=== PATIENT | male | born 1995 | race Caucasian/White ===

== ENCOUNTER 2016-10-18 11:13 | Emergency (ER) | payer BC ==
[2016-10-18 11:24] VITALS: TEMP 98.1
--- NOTE | 2016-10-18 12:00 | EDPHY ---
H & P Stated Complaint: brown of car slammed on head yesterday/denies loc but has crump/ dizzyness today HPI/ROS: CHIEF COMPLAINT: Headache, head injury HISTORY OF PRESENT ILLNESS: Patient complains of accidentally striking himself in the head with a car brown yesterday. This happened twice. He was working on his own car was not currently working. Since then he has had a mild headache. It actually went away and then woke up even more severe this morning. It is over the occiput, the area of injury. Some lightheadedness and dizziness. He has felt somewhat foggy or cloudiness thought process. No neck pain or stiffness. No injuries elsewhere. No vomiting. No change in vision. No other associated complaints or modifying factors REVIEW OF SYSTEMS: Ten systems reviewed and are negative unless otherwise noted in the HPI PAST MEDICAL HISTORY: Asthma SOCIAL HISTORY: Nonsmoker FAMILY HISTORY: Noncontributory EXAMINATION General Appearance: Alert, no distress Head: normocephalic, atraumatic. No Wesley sign. No raccoon eyes. Eyes: Pupils equal and round, no conjunctival pallor or injection ENT, Mouth: Mucous membranes moist Neck: Normal inspection, supple, non-tender Respiratory: No retractions or distress Cardiovascular: Regular rate. Pulses intact distally symmetrically Gastrointestinal: Abdomen is soft and nontender Neurological: GCS 15. A&O, cranial nerves 2-12 grossly intact. nonfocal, normal gait. Strength symmetric in all 4 limbs. No pronator drift. No dysmetria Skin: Warm and dry, no rash Extremities: Nontender, no pedal edema Psychiatric: Mood and affect normal DIFFERENTIAL DIAGNOSES: Including but not limited to hematoma, concussion, closed-head injury, intracranial hemorrhage, basilar skull fracture MDM: 11:50 a.m. Closed head injury x2 yesterday. This is from a brown of a car. He has had some headache, dizziness and felt somewhat lightheaded and cloudy in his thought process. He has no focal findings. We discussed the risks, benefits and alternatives of CT scan versus no CT scan based on his [place] CT Head score. The patient would like to proceed with a CT scan of the head. This has been ordered. He is in no acute distress. 12:25 p.m Notified by radiologist Dr. Canada. CT scan of the head is unremarkable for any acute findings. He remains awake and alert, no acute distress. Neuro exam is fully normal. Discharged home with symptomatic instructions. We discussed the nature of head injuries in the possibility of lingering symptoms. I would like him to see our concussion specialist for further care. Return to ER precautions discussed. He is comfortable this plan and discharged home stable condition SUPERVISION: This patient was independently evaluated without direct examination by the attending physician. Case was discussed with attending physician. Source: Patient Exam Limitations: No limitations - Personal History Current Tetanus/Diphtheria Vaccine: Yes - Medical/Surgical History Hx Asthma: Yes Hx Chronic Respiratory Disease: No Hx Diabetes: No Hx Cardiac Disease: No Hx Renal Disease: No Hx Cirrhosis: No Hx Alcoholism: No Hx HIV/AIDS: No Hx Splenectomy or Spleen Trauma: No Other PMH: denies - Social History Smoking Status: Never smoked Constitutional: Initial Vital Signs Temperature (C) 98.1 F 10/18/16 11:21 Heart Rate 59 L 10/18/16 11:21 Respiratory Rate 20 10/18/16 11:21 Blood Pressure 125/80 H 10/18/16 11:21 O2 Sat (%) 96 10/18/16 11:21 O2 Delivery Mode Room Air Allergies/Adverse Reactions: No Known Allergies Allergy (Unverified 10/18/16 11:21) Home Medications: Medication Instructions Recorded Albuterol 5 mg/ml INH 10/18/16 Codeine/Butalbit/Acetamin/Caff 1 each PO Q6 PRN #12 capsule 10/18/16 [Fioricet-Cod 83-06-106-40 Cap] Departure - Departure Disposition: Home, Routine, Self-Care Clinical Impression: Closed head injury Qualifiers: Encounter type: initial encounter Qualified Code(s): S09.90XA - Unspecified injury of head, initial encounter Condition: Good Instructions: Concussion (ED), Head Injury (ED) Additional Instructions: 1. Follow up with the concussion specialist Dr. Nicholson 2. Return here for worsening headache, neck pain or stiffness, fever, chills, vomiting, visual changes Referrals: Gauri Nicholson MD [Medical Doctor] - As per Instructions Stand Alone Forms: Work Excuse Prescriptions: Codeine/Butalbit/Acetamin/Caff [Fioricet-Cod 30-07-681-40 Cap] 1 each PO Q6 PRN #12 capsule PRN Reason: Headache
[2016-10-18 12:52] VITALS: BP 110/70; PULSE 58; RESP 16; O2SAT 97
== END 2016-10-18 12:52 | disposition home or self-care (01) ==
DX: S09.90XA Unspecified injury of head, initial encounter (principal); J45.909 Unspecified asthma, uncomplicated; W22.8XXA Striking against or struck by other objects, initial encounter; Y99.8 Other external cause status; Y93.89 Activity, other specified

== ENCOUNTER 2016-12-06 12:10 | Emergency (ER) | payer BC ==
--- NOTE | 2016-12-06 15:05 | EDPHY ---
H & P Stated Complaint: R heel hurts since Saturday night;landed hard on heel while skateboarding HPI/ROS: Chief complaint: Right heel pain History of present illness: This is a 21-year-old male who presents to the emergency department for right heel pain. Patient reports 3 days ago while skateboarding he stepped down hard on his heel. Since then he has had pain. It makes it difficult to ambulate. He is concerned he is fractured. He denies other associated signs or symptoms including no open wounds, no abnormal coolness or paresthesias in the foot. No low back pain. No report of trauma to other parts of the body. - Personal History Current Tetanus Diphtheria and Acellular Pertussis (TDAP): Yes - Medical/Surgical History Hx Asthma: Yes Hx Chronic Respiratory Disease: No Hx Diabetes: No Hx Cardiac Disease: No Hx Renal Disease: No Hx Cirrhosis: No Hx Alcoholism: No Hx HIV/AIDS: No Hx Splenectomy or Spleen Trauma: No Other PMH: denies - Social History Smoking Status: Never smoked - Physical Exam Exam: General appearance: Alert, nontoxic Musculoskeletal: No deformity to the right lower extremity. There is tenderness to palpation over the heel of the foot. The rest of the foot ankle and lower leg are nontender. He is moving the digits of the foot and the ankle well. His spine is nontender to palpation. Vascular exam: Normal pulses and capillary refill in the foot Neurologic exam: The patient has normal sensation and motor function distal to the injury. Constitutional: Initial Vital Signs Temperature (C) 37.1 C 12/06/16 12:15 Heart Rate 69 12/06/16 12:15 Respiratory Rate 16 12/06/16 12:15 Blood Pressure 132/64 H 12/06/16 12:15 O2 Sat (%) 97 12/06/16 12:15 O2 Delivery Mode Room Air Allergies/Adverse Reactions: No Known Allergies Allergy (Verified 12/06/16 12:17) Home Medications: Medication Instructions Recorded NK [No Known Home Meds] 12/06/16 Medical Decision Making - Diagnostics Imaging Results: Imaging Impressions Calcaneus X-Ray 12/06/16 13:23 Impression: 1. No evidence of right calcaneus fracture. 2. Plantar and dorsal calcaneal spurs. Imaging: I viewed and interpreted images myself ED Course/Re-evaluation: Patient seen under the supervision of my secondary supervising physician Dr. Luis Enrique Boyle. Patient presents to the emergency department for right heel pain. The right lower extremity is neurovascularly intact. X-rays are negative. Likely contusion. By history and physical exam no evidence of trauma to other parts of the body. Patient is discharged home. Home care is discussed. He is referred to Orthopedics for recheck. Return precautions are given. Patient voiced understanding and agreement with plan. Differential Diagnosis: Included but not limited to contusion, fracture, sprain or strain Departure - Departure Disposition: Home, Routine, Self-Care Clinical Impression: Foot contusion Qualifiers: Encounter type: initial encounter Laterality: right Qualified Code(s): S90.31XA - Contusion of right foot, initial encounter Condition: Good Instructions: Foot Contusion (ED) Additional Instructions: Follow-up with primary care doctor for recheck If symptoms worsen or new symptoms develop return to the emergency room for recheck Referrals: NONE *PRIMARY CARE P,. [Primary Care Provider] - As per Instructions [facility],. [Clinic] - As per Instructions
[2016-12-06 15:11] VITALS: BP 132/78; PULSE 81; RESP 15; TEMP 98.1; O2SAT 96
== END 2016-12-06 15:10 | disposition home or self-care (01) ==
DX: S90.31XA Contusion of right foot, initial encounter (principal); J45.909 Unspecified asthma, uncomplicated; V00.138A Other skateboard accident, initial encounter; Y99.8 Other external cause status; Y93.51 Activity, roller skating (inline) and skateboarding

== ENCOUNTER 2017-05-05 19:24 | Emergency (ER) | payer BC ==
[2017-05-05 19:36] VITALS: TEMP 98.2
--- NOTE | 2017-05-05 19:58 | EDPHY ---
H & P Stated Complaint: poss flu, body aches, nausea, Time Seen by Provider: 05/05/17 19:57 - Personal History Current Tetanus Diphtheria and Acellular Pertussis (TDAP): Yes - Medical/Surgical History Hx Asthma: Yes Hx Chronic Respiratory Disease: No Hx Diabetes: No Hx Cardiac Disease: No Hx Renal Disease: No Hx Cirrhosis: No Hx Alcoholism: No Hx HIV/AIDS: No Hx Splenectomy or Spleen Trauma: No Other PMH: denies - Social History Smoking Status: Never smoked Constitutional: Initial Vital Signs Temperature (C) 36.8 C 05/05/17 19:34 Heart Rate 70 05/05/17 19:34 Respiratory Rate 20 05/05/17 19:34 Blood Pressure 123/81 H 05/05/17 19:34 O2 Sat (%) 96 05/05/17 19:34 O2 Delivery Mode Room Air Allergies/Adverse Reactions: No Known Allergies Allergy (Verified 12/06/16 12:17) Home Medications: Medication Instructions Recorded Oseltamivir Phosphate [Tamiflu 75 75 mg PO BID #10 cap 05/05/17 mg (*)] Medical Decision Making ED Course/Re-evaluation: CHIEF COMPLAINT: Body aches, cough, vomiting, headache HISTORY OF PRESENT ILLNESS: The patient is a 21 y/o male complaining of a cough, body ache, vomiting, diarrhea, headache, onset yesterday. His symptoms worsened today at work. He has not taking medication to alleviate his symptoms. No chest pain, shortness of breath, abdominal pain. REVIEW OF SYSTEMS: A 10 point review of systems was performed and is negative with the exception of the elements mentioned in the history of present illness. PHYSICAL EXAM: HR, BP, O2 Sat, RR. Temp noted General Appearance: Alert, well hydrated, appropriate, and non-toxic appearing. Head: Atraumatic without scalp tenderness or obvious injury Eyes: Pupils equal, round, reactive to light and accommodation, EOMI, no trauma , no injection. Ears: Clear bilaterally, no perforation, normal landmarks Nose: Atraumatic, no rhinorrhea, clear. Throat: Mucus membranes moist. Neck: Supple, nontender, no lymphadenopathy. Respiratory: No retractions, no distress, no wheezes, and no accessory muscle use. Lungs are clear to auscultation bilaterally. Cardiovascular: Regular rate and rhythm, no murmurs, rubs, or gallops. Good capillary refill all extremities. Gastrointestinal: Abdomen is soft, nontender, non-distended, no masses, no rebound, no guarding, no peritoneal signs. Musculoskeletal: Normal active ROM of all extremities, atraumatic. Neurological: Alert, appropriate, and interactive. Non-focal neuro. Skin: No rashes, good turgor, no nodules on palpation. Past medical history: Denies Past surgical history: Denies Family history: Noncontributory Social history: Friend at bedside, employed DIFFERENTIAL DIAGNOSIS: The differential diagnosis for the patient's fever included but was not limited to pneumonia, urinary tract infection, viral syndrome, meningitis, and sepsis. MEDICAL DECISION MAKING: The patient is a 21 y/o male presenting with body aches, cough, and nausea. His symptoms are consistent with influenza. He would like to be prescribed Tamiflu. His first dose of Tamiflu will be given in the ED. Reassessed patient and discussed Tamiflu prescription. Return precautions provided; patient is comfortable with this plan. Departure - Departure Disposition: Home, Routine, Self-Care Clinical Impression: Influenza, Viral syndrome Condition: Good Instructions: Influenza (ED), Viral Syndrome (ED) Additional Instructions: 1. Take Tamiflu as prescribed. 2. Use ibuprofen and Tylenol as needed for fever and body aches. 3. Follow up with your primary care physician within 72 hours for reevaluation. 4. Drink plenty of fluids. 5. Return to the emergency department immediately for high fever, severe headache or neck pain, difficulty breathing, abdominal pain, rash or other worsening of condition. Referrals: [facility],. [Clinic] - As per Instructions Prescriptions: Oseltamivir Phosphate [Tamiflu 75 mg (*)] 75 mg PO BID #10 cap Report Scribed for: Anjum Soria Report Scribed by: Jody Martini Date of Report: 05/05/17 Time of Report: 19:59
[2017-05-05] MEDS ORDERED: OSELTAMIVIR PHOSPHATE 75 MG CAP PO ONE (20:02)
[2017-05-05 20:38] VITALS: BP 133/88; PULSE 88; RESP 18; O2SAT 94
== END 2017-05-05 20:31 | disposition home or self-care (01) ==
DX: J11.1 Influenza due to unidentified influenza virus with other respiratory manifestations (principal); B34.9 Viral infection, unspecified

== ENCOUNTER 2017-08-01 13:57 | Emergency (ER) | payer BC ==
[2017-08-01 14:55] LABS: PLATELET COUNT 251 10^3/uL (150-400)
--- NOTE | 2017-08-01 15:21 | EDPHY ---
H & P Time Seen by Provider: 08/01/17 14:11 HPI/ROS: CHIEF COMPLAINT: Abdominal pain HISTORY OF PRESENT ILLNESS: 21-year-old male presents to the emergency department with generalized abdominal pain over last 3-4 days. He does have a history of irritable bowel syndrome and states that the abdominal pain is similar to what he is experiencing now. He did try taking his medication for IBS. He states he came to the emergency department because yesterday he started having a "warm sensation" in his right flank. He denies any known trauma or injury. He he denies pleuritic chest pain. He does not feel short of breath. No urinary symptoms. No hematuria. No diarrhea. REVIEW OF SYSTEMS: Constitutional: No fever, no chills. Eyes: No double or blurry vision. ENT: No sore throat. Respiratory: No cough, no shortness of breath. Cardiac: No chest pain. Gastrointestinal: Abdominal pain as above. No vomiting or diarrhea. Genitourinary: No dysuria. Musculoskeletal: No neck or back pain. Skin: No rashes. Neurological: No headache. Past Medical/Surgical History: Irritable bowel syndrome Social History: Final lives in [place] Smoking Status: Never smoked Physical Exam: General Appearance: Alert, no distress. Afebrile. No apparent distress. Eyes: Pupils equal and round. Extraocular motions are all intact. ENT: Mouth: Mucous membranes moist. Respiratory: No wheezing, rhonchi, or rales, lungs are clear to auscultation. Cardiovascular: Regular rate and rhythm. Gastrointestinal: Abdomen is soft. Nontender to palpate in the epigastric area or the right upper or the left upper quadrant. There is no rebound, guarding or masses noted. No pain with palpation at McBurney's point. No CVA tenderness bilaterally. No vesicular rash noted to the right flank. Neurological: Alert and oriented x 3, cranial nerves II through XII grossly intact Skin: Warm and dry, no rashes. Musculoskeletal: Nontender to palpate along the cervical, thoracic or lumbar spine. Neck is supple. Extremities: Full range of motion and no peripheral edema. Psychiatric: Patient is oriented X 3, there is no agitation. Constitutional: Initial Vital Signs Temperature (C) 36.9 C 08/01/17 14:05 Heart Rate 70 08/01/17 14:05 Respiratory Rate 18 08/01/17 14:05 Blood Pressure 115/74 08/01/17 14:05 O2 Sat (%) 95 08/01/17 14:05 O2 Delivery Mode Room Air Allergies/Adverse Reactions: No Known Allergies Allergy (Verified 08/01/17 14:05) Home Medications: Medication Instructions Recorded Albuterol 08/01/17 Librax (*) 08/01/17 Medical Decision Making ED Course/Re-evaluation: 21-year-old male presents to the emergency department with generalized abdominal pain over last few days as well as some the right flank discomfort. Laboratory studies reveal normal renal function. White blood cell count is not elevated. Urinalysis reveals no signs of infection. The case was discussed with Dr. Anjum Soria, secondary supervising physician, who did not directly evaluate the patient but agrees with treatment and plan. He agrees with discharging the patient home with follow-up with primary care provider. Patient was comfortable being discharged home. The patient states that he was concerned about possible renal disease. He was reassured that his laboratory studies looked normal. His urinalysis revealed no signs of infection. I doubt kidney stone or kidney infection. I did explain to the patient that the "warm sensation" that he is experiencing in his right flank could possibly be related to herpetic neuralgia associated with herpes zoster. He was given primary care referral return if he develops redness or blistering rash or any other concerns. Differential Diagnosis: Including but not limited to irritable bowel syndrome, herpes zoster, gastritis , kidney stone, urinary tract infection, pyelonephritis - Data Points Laboratory Results: Laboratory Results 08/01/17 14:30 08/01/17 14:30 08/01/17 08/01/17 08/01/17 14:30 14:30 14:15 WBC 8.87 10^3/uL 10^3/uL (3.80-9.50) RBC 5.75 10^6/uL 10^6/uL (4.40-6.38) Hgb 16.7 g/dL g/dL (13.7-17.5) Hct 48.4 % % (40.0-51.0) MCV 84.2 fL fL (81.5-99.8) MCH 29.0 pg pg (27.9-34.1) MCHC 34.5 g/dL g/dL (32.4-36.7) RDW 12.0 % % (11.5-15.2) Plt Count 251 10^3/uL 10^3/uL (150-400) MPV 10.7 fL fL (8.7-11.7) Neut % (Auto) 51.0 % % (39.3-74.2) Lymph % (Auto) 38.3 % % (15.0-45.0) Dixon % (Auto) 7.0 % % (4.5-13.0) Eos % (Auto) 2.7 % % (0.6-7.6) Baso % (Auto) 0.5 % % (0.3-1.7) Nucleat RBC Rel Count 0.0 % % (0.0-0.2) Absolute Neuts (auto) 4.53 10^3/uL 10^3/uL (1.70-6.50) Absolute Lymphs (auto) 3.40 10^3/uL H 10^3/uL (1.00-3.00) Absolute Monos (auto) 0.62 10^3/uL 10^3/uL (0.30-0.80) Absolute Eos (auto) 0.24 10^3/uL 10^3/uL (0.03-0.40) Absolute Basos (auto) 0.04 10^3/uL 10^3/uL (0.02-0.10) Absolute Nucleated RBC 0.00 10^3/uL 10^3/uL (0-0.01) Immature Gran % 0.5 % % (0.0-1.1) Immature Gran # 0.04 10^3/uL 10^3/uL (0.00-0.10) Sodium 146 mEq/L H mEq/L (135-145) Potassium 4.1 mEq/L mEq/L (3.3-5.0) Chloride 107 mEq/L mEq/L (97-110) Carbon Dioxide 25 mEq/l mEq/l (22-31) Anion Gap 14 mEq/L mEq/L (8-16) BUN 13 mg/dL mg/dL (7-23) Creatinine 0.9 mg/dL mg/dL (0.7-1.3) Estimated GFR > 60 Glucose 85 mg/dL mg/dL (70-100) Calcium 10.0 mg/dL mg/dL (8.5-10.4) Total Bilirubin 1.3 mg/dL mg/dL (0.1-1.4) Conjugated Bilirubin 0.3 mg/dL mg/dL (0.0-0.5) Unconjugated Bilirubin 1.0 mg/dL mg/dL (0.0-1.1) AST 21 IU/L IU/L (17-59) ALT 36 IU/L IU/L (21-72) Alkaline Phosphatase 56 IU/L IU/L (38-126) Total Protein 7.9 g/dL g/dL (6.3-8.2) Albumin 4.6 g/dL g/dL (3.5-5.0) Lipase 69 IU/L IU/L (23-300) Urine Color YELLOW Urine Appearance CLEAR Urine pH 5.0 (5.0-7.5) Ur Specific [place] 1.021 (1.002-1.030) Urine Protein NEGATIVE (NEGATIVE) Urine Ketones NEGATIVE (NEGATIVE) Urine Blood NEGATIVE (NEGATIVE) Urine Nitrate NEGATIVE (NEGATIVE) Urine Bilirubin NEGATIVE (NEGATIVE) Urine Urobilinogen NEGATIVE EU EU (0.2-1.0) Ur Leukocyte Esterase NEGATIVE (NEGATIVE) Urine RBC NONE SEEN /hpf /hpf (0-3) Urine WBC 1-3 /hpf /hpf (0-3) Ur Epithelial Cells TRACE /lpf /lpf (NONE-1+) Urine Mucus 2+ /lpf H /lpf (NONE-1+) Urine Glucose NEGATIVE (NEGATIVE) Departure - Departure Disposition: Home, Routine, Self-Care Clinical Impression: Acute flank pain Abdominal pain Qualifiers: Abdominal location: generalized Qualified Code(s): R10.84 - Generalized abdominal pain Condition: Good Instructions: Acute Abdominal Pain (ED), Flank Pain (ED) Additional Instructions: Abdominal Pain: Return to the Emergency Department immediately for increasing pain, fever, vomiting, or if not completely better in 8-12 hours. If you notice any blistering type lesions or rash to your right flank as discussed, you should follow up with a primary care provider. Referrals: Farida Funes MD [Medical Doctor] - 2-3 days, if not improved (Primary care provider adoption counselor)
[2017-08-01 15:31] VITALS: BP 125/75
== END 2017-08-01 15:30 | disposition home or self-care (01) ==
DX: R10.84 Generalized abdominal pain (principal)

== ENCOUNTER 2017-09-07 00:45 | Emergency (ER) | payer BC ==
[2017-09-07] MEDS ORDERED: TRANEXAMIC ACID 1,000 MG/10 ML VIAL ONE (01:21)
--- NOTE | 2017-09-07 01:22 | EDPHY ---
H & P Stated Complaint: tooth extraction "wont stop bleeding" Time Seen by Provider: 09/07/17 01:19 HPI/ROS: HPI CHIEF COMPLAINT: Dental bleeding. HISTORY OF PRESENT ILLNESS: Patient is a 21-year-old male, presents emergency room as he has bleeding from his left upper posterior molar. This was extracted earlier today. Patient states he is unable to get it to stop bleeding. Denies smoking or trauma. Denies playing at this tongue. It has been bleeding intermittently rather all day. Denies any significant pain or swelling. Denies any fever or infection. Patient is not on any blood thinners he denies any history of hemophilia. Past Medical History: Denies medical history Past Surgical History: Dental extraction today. By comfort dental left upper posterior molar. Social History: Denies drugs alcohol tobacco. Family History: Noncontributory ROS REVIEW OF SYSTEMS: A comprehensive 10 point review of systems is otherwise negative aside from elements mentioned in the history of present illness. Exam Constitutional triage nursing summary reviewed, vital signs reviewed, awake/ alert. Eyes normal conjunctivae and sclera, EOMI, PERRLA. HENT oropharynx: Left upper posterior molar extraction site has some venous bleeding. Present on exam. No evidence of swelling or infection. normal inspection, atraumatic, moist mucus membranes, no epistaxis, neck supple/ no meningismus, no raccoon eyes. Respiratory clear to auscultation bilaterally, normal breath sounds, no respiratory distress, no wheezing. Cardiovascular rate normal, regular rhythm, no murmur, no edema, distal pulses normal. Gastrointestinal soft, non-tender, no rebound, no guarding, normal bowel sounds, no distension, no pulsatile mass. Genitourinary no CVA tenderness. Musculoskeletal no midline vertebral tenderness, full range of motion, no calf swelling, no tenderness of extremities, no meningismus, good pulses, neurovascularly intact. Skin pink, warm, & dry, no rash, skin atraumatic. Neurologic awake, alert and oriented x 3, AAOx3, moves all 4 extremities equally, motor intact, sensory intact, CN II-XII intact, normal cerebellar, normal vision, normal speech. Psychiatric normal mood/affect. Heme/Lymph/Immune no lymphadenopathy. Differential Diagnosis: Includes but is not limited to in a particular order dental extraction site bleeding. Medical Decision Making: Plan for this patient will place topical TXA. Re- evaluate. Re-evaluation: 013; topical TXA was applied to the left posterior tooth extraction site left posterior molar. Will re-evaluate shortly. 0158AM: re-eval. Good Hemostasis of the clot. No active Bleeding. 0234: Patient re-evaluated no further oropharyngeal dental extraction site bleeding. He had good hemostasis with topical TXA. Recommend no smoking. Do not place with a clot with his tongue. Soft foods including ice cream. No sucking through a straw. Follow up with his dentist. Source: Patient, EMS - Personal History Current Tetanus/Diphtheria Vaccine: Unsure Current Tetanus Diphtheria and Acellular Pertussis (TDAP): Unsure - Medical/Surgical History Hx Asthma: Yes Hx Chronic Respiratory Disease: No Hx Diabetes: No Hx Cardiac Disease: No Hx Renal Disease: No Hx Cirrhosis: No Hx Alcoholism: No Hx HIV/AIDS: No Hx Splenectomy or Spleen Trauma: No Other PMH: IBS - Social History Smoking Status: Never smoked Constitutional: Initial Vital Signs Temperature (C) 36.9 C 09/07/17 00:48 Heart Rate 71 09/07/17 00:48 Respiratory Rate 16 09/07/17 00:48 Blood Pressure 128/74 H 09/07/17 00:48 O2 Sat (%) 96 09/07/17 00:48 O2 Delivery Mode Room Air Allergies/Adverse Reactions: No Known Allergies Allergy (Verified 08/01/17 14:05) Home Medications: Medication Instructions Recorded Albuterol 08/01/17 Librax (*) 08/01/17 Medical Decision Making - Data Points Medications Given: Discontinued Medications Tranexamic Acid (Cyklokapron) 500 mg TP EDNOW ONE Stop: 09/07/17 01:24 Last Admin: 09/07/17 01:42 Dose: 500 mg Departure - Departure Disposition: Home, Routine, Self-Care Clinical Impression: Surgical wound hemorrhage after dental procedure Condition: Good Instructions: Toothache (ED), Postoperative Bleeding (ED) Additional Instructions: 1. Do not smoke. 2. Do not take aspirin. 3. Do not play with it with her tongue. 4. Follow up with your dentist 5. Return emergency room if he continues to bleed. Referrals: LAVERNE CHEN [Primary Care Provider] - As per Instructions
[2017-09-07] MEDS ORDERED: TRANEXAMIC ACID 1,000 MG/10 ML VIAL TP ONE (01:23)
[2017-09-07 02:43] VITALS: BP 135/90
== END 2017-09-07 02:43 | disposition home or self-care (01) ==
DX: K91.840 Postprocedural hemorrhage of a digestive system organ or structure following a digestive system procedure (principal); J45.909 Unspecified asthma, uncomplicated